=== PATIENT | male | born 1960 | race Caucasian/White ===

== ENCOUNTER 2017-09-08 18:53 | Emergency (ER) | payer OTHER ==
[~2017-09-08] VITALS: Ht 188 cm; Wt 84.0 kg
[2017-09-08 22:49] VITALS: BP 118/67
== END 2017-09-08 22:49 | disposition home or self-care (01) ==
LOC: EXP 18:53 → EME 18:53 → EXP 22:49
DX: Z76.0 Encounter for issue of repeat prescription (principal); G89.29 Other chronic pain; E11.9 Type 2 diabetes mellitus without complications; F17.200 Nicotine dependence, unspecified, uncomplicated; Z88.1 Allergy status to other antibiotic agents; Z88.8 Allergy status to other drugs, medicaments and biological substances
CPT/HCPCS: 99281; 99284